=== PATIENT | male | born 1990 | race Caucasian/White ===

== ENCOUNTER → 2018-02-04 | Outpatient (CLI) | payer OTHER ==
--- NOTE | 2018-02-04 17:20 | RADIOLOGY IMAGING REPORT ---
FACILITY: [facility] PATIENT NAME: Enrique Veloz : 1990 MR: [id number] V: [id number] EXAM DATE: ORDERING PHYSICIAN: GERTRUDE SABA TECHNOLOGIST: Location: [facility] [place] Patient: Enrique Veloz : 1990 Visit/Account:[id number] Date of Sevice: 02/04/2018 Three-view lumbar spine COMPARISONS: None. ADDITIONAL PERTINENT HISTORY: Low back pain for one half months. FINDINGS: Vertebral body heights and alignments: Negative. Vertebral bodies: Negative. Disc spaces: Negative. Visualized bony pelvis: Negative. Surrounding soft tissues: Negative. IMPRESSION: Normal views of the lumbar spine. Report Dictated By: Srikanth Yuen MD at 02/04/2018 5:15 PM Report E-Signed By: Srikanth Yuen MD at 02/04/2018 5:16 PM WSN:[id number]
== END ==
LOC: RAD 15:41
PROVIDERS: ATTEND Physician Assistant Medical
DX: M54.31 Sciatica, right side (principal); M54.5 Low back pain
CPT/HCPCS: 72100